=== PATIENT | female | born 1990 | race Caucasian/White ===

== ENCOUNTER → 2025-02-16 | Outpatient (CLI) | payer SELFPAY | END | disposition home or self-care (01) | LOC: MTRAD 13:05 | PROVIDERS: PCP Family Medicine; Referring Provider Physician Assistant Surgical; Visit Provider Physician Assistant Surgical | DX: S96.912A Strain of unspecified muscle and tendon at ankle and foot level, left foot, initial encounter (principal) | CPT/HCPCS: 73630 ==